=== PATIENT | female | born 1930 | race Hispanic/Latino ===

== ENCOUNTER 2019-11-04 06:07 | Day surgery (SDC) | payer MEDICARE, OTHER ==
[2019-11-04] VITALS (7 sets, daily range): BP systolic 102–137; BP diastolic 50–78
[~2019-11-04] VITALS: Ht 157.5 cm; Wt 62.1 kg
[~2019-11-04 06:07] MED LIST: ACET-2743 PO; APIX2.5T PO; ATOR20TA65 PO; BENA40TA9 PO; DIGO0.12 PO; FLUT16H NASAL; FOLI0.8T PO; LACT1CAP62 PO; LORA-705 PO; METH2.5T6 PO; METO100T14 PO; MULT-1203 PO; MV-M1TAB20 PO; PRED2.5T PO; WHEA98PO PO
[2019-11-04] MEDS ORDERED: SODIUM CHLORIDE 0.9% 1000ML 1,000 ML IV ONE (06:26)
--- NOTE | 2019-11-04 07:40 | NUR ---
NURSING REGARDING PT ABNORMAL EKG SPOKE TO KAIN DELUNA CRNA AND WANTS HEART [facility] ON-CALL AUTOMATIC DRILL OPERATOR TO REVIEW BEFORE PROC. DR DENT IN PARKING ENFORCEMENT SPECIALIST SO TOOK EKG AND HE EVALUATED AND HE SAID OK TO PROCEED WITH FLEX SIG TODAY. MADE DR GOODMAN AWARE Addendum: 11/04/19 at 0746 by ALBERT IRVING RN Amended: Links added.
[2019-11-04] MEDS ORDERED: PROPOFOL 10 MG/ML 20ML VIAL IV ONE (08:14)
== END 2019-11-04 09:05 | disposition home or self-care (01) ==
LOC: ENDO 06:07 → DAH 06:07 → ENDO 09:05
PROVIDERS: ATTEND Internal Medicine
DX: K57.30 Diverticulosis of large intestine without perforation or abscess without bleeding (principal); E78.5 Hyperlipidemia, unspecified; E03.9 Hypothyroidism, unspecified; M81.0 Age-related osteoporosis without current pathological fracture; I10 Essential (primary) hypertension; K21.9 Gastro-esophageal reflux disease without esophagitis; Z88.3 Allergy status to other anti-infective agents; Z91.013 Allergy to seafood; Z79.01 Long term (current) use of anticoagulants; Z79.899 Other long term (current) drug therapy; Z90.710 Acquired absence of both cervix and uterus; Z90.49 Acquired absence of other specified parts of digestive tract; Z98.49 Cataract extraction status, unspecified eye; Z95.0 Presence of cardiac pacemaker; Z96.641 Presence of right artificial hip joint; Z82.49 Family history of ischemic heart disease and other diseases of the circulatory system
CPT/HCPCS: 45331; 88305; 93005; A4215 ×2; A4221; A4222; A4223; A4335; A4606; A4615; A4663; J2704; J7030